=== PATIENT | male | born 1965 | race Caucasian/White ===

== ENCOUNTER → 2021-10-25 15:16 | Outpatient (POV) | payer BC, SELFPAY | PROVIDERS: Visit Provider Audiologist | DX: Z00.00 Encounter for general adult medical examination without abnormal findings (principal) ==

== ENCOUNTER → 2021-11-27 10:17 | Outpatient (CLI) | payer BC, SELFPAY | PROVIDERS: Visit Provider Nurse Practitioner | DX: U07.1 COVID-19 (principal) | CPT/HCPCS: C9803; U0003; U0005 ==

== ENCOUNTER → 2022-04-27 09:52 | Outpatient (CLI) | payer BC, SELFPAY | PROVIDERS: PCP Family Medicine; Visit Provider Surgery | DX: Z01.812 Encounter for preprocedural laboratory examination (principal); Z20.822 Contact with and (suspected) exposure to COVID-19; Z12.11 Encounter for screening for malignant neoplasm of colon | CPT/HCPCS: C9803; U0003; U0005 ==

== ENCOUNTER 2022-04-30 08:31 | Day surgery (SDC) | payer BC, SELFPAY ==
[2022-04-29 08:22] VITALS: BMI 29.1
[2022-04-30] VITALS (7 sets, daily range): BP systolic 116–141; BP diastolic 76–92; PULSE 54–78; RESP 16–18; TEMP 36.3; O2SAT 97–100
--- NOTE | 2022-04-30 09:53 | P.PN_ITS ---
[facility] Anesthesia Checklist - Patient Identification Patient Identification: Arm Band, Verbal (Name & ) - Structural Data Admitted From: Home Planned Operative Procedure/s: Colonoscopy Consent for Planned Operative Procedure(s) Verified: Yes Verified Documents: Surgical Consent - NPO Status Verified Time NPO: 04:00 - Airway Assessment C-Spine Mobility Assessed: Yes TMJ Mobility Assessed: Yes Dentition: Good Dentition - Neurological Assessment Level of Consciousness: Awake, Alert, Appropriate - Anesthesia Plan Anesthesia Risk discussed: Yes ASA Class: II Anesthesia Type: MAC [facility] History I have reviewed the patient's past medical history: Yes Medical History: Denies:: Cancer, Diabetes Mellitus Type 1, Diabetes Mellitus Type 2, Internal Pacemaker, MRSA, Seizures *Have you ever received a pneumonia vaccine?: No *Have you received a flu vaccine this season?: No Anesthesia experience/problems:: none Other Surgeries: No: Pacemaker Amputation: No Fractures: No - *Social History Smoking Status: Former smoker Alcohol Intake: never Substance Use Type: denies use *Occupational Status:: retired Housing: house *Travel in the last 8 weeks: None Family Hx:: No significant family history
--- NOTE | 2022-04-30 10:10 | HMH.SCOPE ---
- Procedure: Date: 04/30/22 Patient Date of :: 1965 Procedure Performed:: Colonoscopy Indications:: Screening Performing Provider:: Blaise Cannon MD Referring Provider:: Dr. Doan Sedation:: Monitored anesthesia care Procedure:: After informed consent was obtained the patient was taken to the endoscopy suite. Sedation ensued after the patient was transferred to the left lateral decubitus position. Pulse, blood pressure, and oxygen saturation were monitored throughout the procedure. Digital rectal exam revealed no significant abnormality. The colonoscope was placed in position. The entire colon was evaluated. The colonoscope was carefully removed and the patient was transferred to recovery in stable condition. Please see findings and specimens below for detail. Findings:: Bowel preparation fair to moderate Moderate lack of relaxation Scattered diverticulosis Hemorrhoidal cushions Specimens:: None Recommendations:: Repeat colonoscopy in 3-5 years secondary to slightly-limiting bowel preparation and lack of relaxation. Complications:: No immediate Estimated blood obtained (mL): 0
== END 2022-04-30 11:02 | disposition home or self-care (01) ==
LOC: OUTP 08:33
PROVIDERS: PCP Family Medicine; Visit Provider Surgery
PROC: 0DJD8ZZ Inspection of Lower Intestinal Tract, Via Natural or Artificial Opening Endoscopic (ICD-10-PCS; CPT 45378; principal; 2022-04-30 09:30)
DX: Z12.11 Encounter for screening for malignant neoplasm of colon (principal); Z79.899 Other long term (current) drug therapy
CPT/HCPCS: 45378

== ENCOUNTER 2023-08-03 13:28 | Emergency (ER) | payer BC, SELFPAY ==
--- NOTE | 2023-08-03 13:34 | XR_ITS ---
PROCEDURE INFORMATION: Exam: XR Right Foot Exam date and time: 08/03/2023 1:32 PM Age: 57 years old Clinical indication: Toes; Right; Patient HX: Pain great toe TECHNIQUE: Imaging protocol: Radiologic exam of the right foot. Views: 3 or more views. COMPARISON: No relevant prior studies available. FINDINGS: Bones/joints: No visible fracture or dislocation. Small calcaneal spur noted. No definitive osseous erosive lesions. Soft tissues: Normal. IMPRESSION: No visible fracture or dislocation.
[2023-08-03 14:00] VITALS: BP 156/94; PULSE 82; RESP 18; TEMP 36.8; O2SAT 94; BMI 28.5
--- NOTE | 2023-08-03 14:25 | EXP.UTC ---
Discharge Plan Disposition Patient Disposition: Home, Self-Care Condition: Good Prescriptions Prescriptions: No Action olmesartan-hydrochlorothiazide 1 EACH tablet 1 each PO DAILY Referrals Follow up/Referrals: Jeffrey Doan MD [Primary Care Provider] - See instructions Activity Restrictions/Add. Instructions Additional Instructions/Restrictions: Take gout medication as previously prescribed. Clinical Impressions Clinical Impression: Gout Qualifiers: Gout site: toe Gout etiology: unspecified cause Chronicity: acute Laterality: right Qualified Code(s): M10.9 - Gout, unspecified Instructions Patient Instructions: DI for Gout, Gout (Alternative Therapy) Discharge ED Provider: hSyanne Bowman [facility] General Stated complaint: AO right foot swelling Mode of Arrival: Ambulatory Source of Information: Patient Limitations: No Limitations Time Seen by Provider: 08/03/23 14:24 Description of Symptoms (Recalled from Triage Doc. by RN): Pt was walking and hit right big toe on concrete on 07/20/2023. Pt states that right big toe is swollen. HEENT Symptoms (Recalled from RN notes): No Resp Symptoms (Recalled from RN notes): No Skin Symptoms (Recalled from RN notes): No MS Symptoms (Recalled from RN notes): Yes Functional Status (Recalled from RN notes): n/a History of Present Illness Provider Complaint: Pt states that he stubbed his right great toe on 07/20/23 and 2 days later his toe began to hurt and swell. He is concerned that he may have broken his toe. He reports that he does have a history of gout, but felt that it may have more to do with stubbing his toe. Related Data Home Medications Medication Instructions Recorded Confirmed olmesartan 20 1 each PO DAILY bp 04/29/22 08/03/23 mg-hydrochlorothiazide 12.5 mg tablet Allergies Allergy/AdvReac Type Severity Reaction Status Date / Time No Known Allergies Allergy Verified 08/03/23 14:13 Worker's Comp Is this a Worker's Comp case?: No [facility] Disclaimer: The information contained in this section may have been updated after the patient was seen, as this information can be updated by other users. Social History Smoking Status: Former smoker alcohol intake: never substance use type: denies use current occupational status: retired Travel in the last 8 weeks: None housing: house current occupational exposures/hazards: No caffeine: Yes ROS Obtained: Yes All systems reviewed & no additional complaints except as documented Constitutional Constitutional: Reports system reviewed and no additional complaints, except as documented Eyes Eyes: Reports system reviewed and no additional complaints, except as documented ENT Ears, Nose, Mouth, and Throat: Reports system reviewed and no additional complaints, except as documented Cardiovascular Cardiovascular: Reports system reviewed and no additional complaints, except as documented Respiratory Respiratory: Reports system reviewed and no additional complaints, except as documented Gastrointestinal Gastrointestingal: Reports system reviewed and no additional complaints, except as documented Genitourinary Male Genitourinary: Reports system reviewed and no additional complaints, except as documented Musculoskeletal Musculoskeletal: Reports system reviewed and no additional complaints, except as documented, Reports arthralgias, Reports joint stiffness, Reports joint swelling and Reports limited range of motion Comments: right great toe Integumentary/Breasts Skin/Breast: Reports system reviewed and no additional complaints, except as documented Neurologic Neurologic: Reports system reviewed and no additional complaints, except as documented Endocrine Endocrine: Reports system reviewed and no additional complaints, except as documented Hematologic/Lymphatic Henatologic/Lymphatic: Reports system reviewed and no additional complaints, except as documented Allergic/Immunologic Al
[2023-08-03 14:37] VITALS: BP 156/94; PULSE 82; RESP 18; TEMP 36.8; O2SAT 95
== END 2023-08-03 14:37 | disposition home or self-care (01) ==
PROVIDERS: Emergency Provider Nurse Practitioner Family; PCP Family Medicine
DX: M10.071 Idiopathic gout, right ankle and foot (principal); M79.674 Pain in right toe(s); Z87.891 Personal history of nicotine dependence
CPT/HCPCS: 73630; 99203; 99212; 99213; G0463

== ENCOUNTER 2024-03-22 08:33 | Outpatient (CLI) | payer BC, SELFPAY ==
--- NOTE | 2024-03-22 08:38 | CT_ITS ---
FINAL REPORT TECHNIQUE: Thin section axial images were obtained from the lung apices to the upper abdomen by computed tomography. Reformatted images were obtained and reviewed. This study was performed with techniques to keep radiation doses al low as reasonably achievable (ALARA). Individualized dose reduction techniques using automated exposure control or adjustment of mA and/or kV according to the patient's size were employed. CLINICAL HISTORY: TOBACCO USE FORMER SMOKER QUIT 15 YEARS AGO, 1PPD X20 YEARS WHEN SMOKING COMPARISON: None FINDINGS: CHEST CT LOW DOSE CTDI vol (mGy): 2.90 DLP (mGy-cm): 104.9 none There is no axillary adenopathy. There is no mediastinal or hilar mass or adenopathy. The heart is normal in size. There is no pericardial or pleural effusion. There is mild emphysema and mild pulmonary scarring. Lung window images demonstrate a 4 mm nodule in the posterior right lower lobe best seen on image 41. There is a calcified granuloma in the right upper lobe. Limited images of the upper abdomen demonstrate fatty infiltration of the liver. There are scattered colonic diverticula. IMPRESSION: Lung-RADS category 2. Recommend 12 month follow up low dose chest CT. Reviewed, Interpreted and Dictated by Scott Rodriguez III, MD Transcribed by Frida Edouadr Authenticated and [facility]
== END 2024-03-22 23:59 | disposition home or self-care (01) ==
LOC: RAD 08:35
PROVIDERS: PCP Family Medicine; Visit Provider Family Medicine
DX: Z87.891 Personal history of nicotine dependence (principal); Z12.2 Encounter for screening for malignant neoplasm of respiratory organs
CPT/HCPCS: 71271

== ENCOUNTER 2024-05-21 10:01 | Outpatient (CLI) | payer BC, SELFPAY ==
--- NOTE | 2024-05-21 10:07 | XR_ITS ---
FINAL REPORT CLINICAL HISTORY: COCCYDYNIA; HX OF FALL COMPARISON: None FINDINGS: SACRUM COCCYX 3 views demonstrate no acute fracture or dislocation. The sacral arches are intact. There is moderate degenerative change in the lower lumbar spine. No soft tissue abnormality is seen. IMPRESSION: Degenerative changes without acute process. Reviewed, Interpreted and Dictated by Scott Rodriguez III, MD Transcribed by Frida Edouard Authenticated and [facility]
== END 2024-05-21 23:59 | disposition home or self-care (01) ==
LOC: RAD 10:02
PROVIDERS: PCP Family Medicine; Visit Provider Family Medicine
DX: M53.3 Sacrococcygeal disorders, not elsewhere classified (principal)
CPT/HCPCS: 72220